=== PATIENT | female | born 1985 | race Asian ===

== ENCOUNTER 2018-02-21 14:49 | Emergency (ER) | payer OTHER ==
[2018-02-21] MEDS ORDERED: Vistaril25 MG PO (22:16)
[2018-02-21] MEDS ORDERED: Protonix40 MG PO (22:16)
== END 2018-02-21 16:30 | disposition left against medical advice (07) ==
LOC: ER 14:49
DX: Z53.21 Procedure and treatment not carried out due to patient leaving prior to being seen by health care provider (principal)

== ENCOUNTER 2018-02-21 16:36 | Emergency (ER) | payer OTHER ==
[~2018-02-21] VITALS: Ht 152.4 cm; Wt 63.5 kg
[2018-02-21] MEDS ORDERED: Vistaril25 MG PO (22:16)
[2018-02-21] MEDS ORDERED: Protonix40 MG PO (22:16)
== END 2018-02-21 22:29 | disposition home or self-care (01) ==
LOC: ER 16:36
DX: R09.89 Other specified symptoms and signs involving the circulatory and respiratory systems (principal); F41.9 Anxiety disorder, unspecified
CPT/HCPCS: 36415; 70491; 99284-25; Q9967

== ENCOUNTER 2018-05-20 06:29 | Day surgery (SDC) | payer OTHER ==
[~2018-05-20] VITALS: Ht 165.1 cm; Wt 67.0 kg
[~2018-05-20 06:29] MED LIST: Protonix40 MG PO; Ranitidine HCl150 M1 PO; Vistaril25 MG PO
== END 2018-05-20 12:00 | disposition home or self-care (01) ==
LOC: MHTC 06:29 → ORSCMMR 06:30 → MHTC 06:37
DX: R07.89 Other chest pain (principal); Z01.810 Encounter for preprocedural cardiovascular examination; R94.31 Abnormal electrocardiogram [ECG] [EKG]; K21.9 Gastro-esophageal reflux disease without esophagitis; Z82.49 Family history of ischemic heart disease and other diseases of the circulatory system
CPT/HCPCS: 93454; 99152; C1769; C1894; J1644; J2250; J3010; J7030; Q9967

== ENCOUNTER → 2020-07-01 | Outpatient (CLI) | payer OTHER ==
[2020-07-03 05:09] LABS: CHLAMYDIA TRACHOMATIS, NAA Negative (Negative)
[2020-07-05 15:07] LABS: HPV 16 Negative (Negative); HPV 18 Negative (Negative); HPV OTHER HR TYPES Negative (Negative)
== END | disposition home or self-care (01) ==
LOC: LAB SHORT 07:55 → LAB EV 07:55
PROVIDERS: Family Medicine
DX: Z01.419 Encounter for gynecological examination (general) (routine) without abnormal findings (principal)
CPT/HCPCS: 87491; 87591; 87624; G0123